=== PATIENT | female | born 1990 | race Caucasian/White ===

== ENCOUNTER → 2017-08-17 | Outpatient (CLI) | payer BC ==
--- NOTE | 2017-08-17 15:27 | US ---
EXAMINATION TYPE: US pelvic complete DATE OF EXAM: 08/17/2017 COMPARISON: NONE CLINICAL HISTORY: E28.2 POLYCYSTIC OVARIAN SYNDROME. TECHNIQUE: Transabdominal (TA) EXAM MEASUREMENTS: Uterus: 7.9 x 2.9 x 4.0 cm Endometrial Stripe: 0.8 cm Right Ovary: 2.0 x 1.9 x 1.3 cm Left Ovary: 2.6 x 1.9 x 1.6 cm 1. Uterus: Anteverted wnl 2. Endometrium: wnl 3. Right Ovary: wnl 4. Left Ovary: wnl 5. Bilateral Adnexa: wnl 6. Posterior cul-de-sac: wnl IMPRESSION: 1. No ovarian enlargement or sonographic evidence of polycystic ovarian syndrome to correspond to the patient's known diagnosis. 2. Unremarkable uterus and endometrial thickness on transabdominal technique.
== END | disposition home or self-care (01) ==
LOC: RADUSWWP 14:57
PROVIDERS: ATTEND Internal Medicine Endocrinology, Diabetes & Metabolism
DX: E28.2 Polycystic ovarian syndrome (principal)
CPT/HCPCS: 76856

== ENCOUNTER 2020-02-25 09:46 | Emergency (ER) | payer BC ==
[2020-02-25 09:52] VITALS: BP 142/84; PULSE 98; RESP 18; TEMP 98.2
--- NOTE | 2020-02-25 10:36 | US ---
EXAMINATION TYPE: US venous doppler duplex LE RT DATE OF EXAM: 02/25/2020 10:03 AM COMPARISON: NONE CLINICAL HISTORY: pain right leg SIDE PERFORMED: right TECHNIQUE: The lower extremity deep venous system is examined utilizing real time linear array sonog diya with graded compression, doppler sonography and color-flow sonography. VESSELS IMAGED: External Iliac Vein (EIV) Common Femoral Vein Deep Femoral Vein Greater Saphenous Vein * Femoral Vein Popliteal Vein Small Saphenous Vein * Proximal Calf Veins (* superficial vessels) Right Leg: Negative for DVT No popliteal fossa lesion is seen. IMPRESSION: THIS EXAMINATION IS NEGATIVE FOR DVT WITHIN THE RIGHT LEG.
--- NOTE | 2020-02-25 10:38 | ED ---
Extremity Problem HPI - General Chief complaint: Extremity Problem,Nontraumatic Stated complaint: Knee pain Time Seen by Provider: 02/25/20 09:53 Source: patient, RN notes reviewed Mode of arrival: wheelchair Limitations: no limitations - History of Present Illness Initial comments: This is a 29-year-old female presents emergency Department chief complaint of right knee pain. Patient states started late last night states that he feeling in her legs states that hurts when she straightens her leg denies any trauma denies any significant swelling. Patient is concerned as she has been recently diagnosed with Dr. De Guzman. She denies any prior DVT no chest pain or shortness of breath. Patient states that it in a slightly bent position symptoms are impro sol. Patient offers no other complaints. - Related Data Previous Rx's Medication Instructions Recorded Ibuprofen [Motrin] 600 mg PO Q8HR PRN #20 tab 02/25/20 Allergies Allergy/AdvReac Type Severity Reaction Status Date / Time No Known Allergies Allergy Verified 02/25/20 09:52 Review of Systems ROS Statement: Those systems with pertinent positive or pertinent negative responses have been documented in the HPI. ROS Other: All systems not noted in ROS Statement are negative. 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 Absent: respiratory distress, wheezes, rales, rhonchi, stridor Cardiovascular Exam: Present: regular rate, normal rhythm, normal heart sounds. Absent: systolic murmur, diastolic murmur, rubs, gallop, clicks Extremities exam: Present: other (Right knee there is tenderness in the popliteal region, leg is neurovascularly intact equal color equal warmth no swelling mild discomfort with range of motion. No laxity) Course Vital Signs 02/25/20 09:47 Temperature 98.2 F Pulse Rate 98 Respiratory 18 Rate Blood Pressure 142/84 O2 Sat by Pulse 98 Oximetry Medical Decision Making - Medical Decision Making 29-year-old presented for knee pain WRAPS performed to rule out DVT which is negative. Patient's symptoms are more consistent with the ecchymosis. Patient started on anti-inflammatories will follow-up with orthopedics. Disposition Clinical Impression: Right knee pain, Bakers cyst Disposition: HOME SELF-CARE Condition: Stable Instructions (If sedation given, give patient instructions): Bakers Cyst (ED), Knee Pain (ED) Additional Instructions: Please return to the Emergency Department if symptoms worsen or any other concerns. Prescriptions: Ibuprofen [Motrin] 600 mg PO Q8HR PRN #20 tab PRN Reason: Pain Is patient prescribed a controlled substance at d/c from ED?: No Referrals: Denny Polk MD [Primary Care Provider] - 1-2 days Felix Whitney MD [STAFF PHYSICIAN] - 1-2 days Time of Disposition: 10:48
== END 2020-02-25 11:00 | disposition home or self-care (01) ==
LOC: EC 09:46
DX: M71.21 Synovial cyst of popliteal space [Baker], right knee (principal)
CPT/HCPCS: 99283

== ENCOUNTER 2020-03-22 20:25 | Emergency (ER) | payer BC ==
[2020-03-22 20:40] VITALS: RESP 18; TEMP 98
[2020-03-22] MEDS ORDERED: OFLOXACIN 0.3% OPHTH DROPS 5 ML BOTTLE RIGHT EAR STA (21:15)
--- NOTE | 2020-03-22 21:38 | ED ---
General Adult HPI - General Chief complaint: ENT Stated complaint: R Ear Pain Time Seen by Provider: 03/22/20 20:49 Source: patient, RN notes reviewed, old records reviewed Mode of arrival: ambulatory Limitations: no limitations - History of Present Illness Initial comments: 29-year-old female patient proceeded chief complaint right ear pain for about the last 3 weeks. Reports that she was having previously swimming but denies being in water recently. Patient attempted to put some hydrogen peroxide in her ear without any improvement of symptoms. Denies any fevers or chills. Denies any other complaints. Systemic: Pt denies fatigue, fever/chills, rash. Pt denies weakness, night sweats, weight loss. Neuro: Pt denies headache, visual disturbances, syncope or pre-syncope. HEENT: Pt denies ocular discharge or irritation, rhinorrhea, pharyngitis or notable lymphadenopathy. Cardiopulmonary: Pt denies chest pain, SOB, heart palpitations, dyspnea on exertion. Abdominal/GI: Pt denies abdominal pain, n/v/d. : Pt denies dysuria, burning w/ urination, frequency/urgency. Denies new onset urinary or bowel incontinence. MSK: Pt denies myalgia, loss of strength or function in extremities. Neuro: Pt denies new onset weakness, paresthesias. - Related Data Previous Rx's Medication Instructions Recorded Ibuprofen [Motrin] 600 mg PO Q8HR PRN #20 tab 02/25/20 Allergies Allergy/AdvReac Type Severity Reaction Status Date / Time No Known Allergies Allergy Verified 03/22/20 20:40 Review of Systems ROS Statement: Those systems with pertinent positive or pertinent negative responses have been documented in the HPI. ROS Other: All systems not noted in ROS Statement are negative. 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 HEENT: NC/AT, trachea midline, neck supple, no lymphadenopathy. Posterior pharynx non erythematous, without exudates. External ears appear normal, without discharge. Right auditory canal edematous and erythematous. No otorrhea is noted. TM unable to be visualized. No posterior mastoid skin changes or tenderness bilaterally. Left TM pale smith bilaterally. Mucous membranes moist. Eyes PERRLA, EOM intact. There is no scleral icterus. No pallor noted. Cardiopulmonary: RRR, no murmurs, rubs or gallops, no JVD noted. Lungs CTAB in anterior and posterior gibbons. No peripheral edema. Neuro: CN II-XII grossly intact. No nuchal rigidity. no culver sign. MSK: Full active ROM in upper and lower extremities. Limitations: no limitations Course Vital Signs 03/22/20 20:38 Temperature 98.0 F Pulse Rate 95 Respiratory 18 Rate Blood Pressure 171/98 O2 Sat by Pulse 98 Oximetry Medical Decision Making - Medical Decision Making 29-year-old female patient was seen for evaluation of right otalgia has ongoing for 3 weeks. Patient vital signs the displayed mild hypertension for which patient will have recheck by her primary care provider tomorrow. Physical exam does display otitis externa. Patient placed on on ofloxacin drops. Will follow up with primary care provider and also be given ENT follow-up. Will return with any worsening symptoms. Case discussed with Dr. Manzo. Disposition Clinical Impression: Otitis externa Disposition: HOME SELF-CARE Condition: Stable Instructions (If sedation given, give patient instructions): Otitis Externa (ED) Additional Instructions: Follow-up with primary care provider tomorrow. Follow with ENT tomorrow. Take antibiotics as directed. Use 5 drops in the affected ear every 12 hours. Return to ER if condition worsens. Is patient prescribed a controlled substance at d/c from ED?: No Referrals: Denny Polk MD [Primary Care Provider] - 1-2 days Gino Gupta MD [STAFF PHYSICIAN] - 1-2 days
[2020-03-22 22:07] VITALS: BP 161/98; PULSE 94
== END 2020-03-22 22:13 | disposition home or self-care (01) ==
LOC: EC 20:25
DX: H60.91 Unspecified otitis externa, right ear (principal); I10 Essential (primary) hypertension
CPT/HCPCS: 99283